=== PATIENT | female | born 1980 | race Caucasian/White ===

== ENCOUNTER 2016-04-04 13:19 | Emergency (ER) | payer OTHER ==
[~2016-04-04] VITALS: Ht 165.1 cm; Wt 70.8 kg
[~2016-04-04 13:19] MED LIST: ABILIFY5 M1 PO; BUSPIRONE10 MG PO; CLONIDINE0.1 MG PO; CYCLOBENZAPRINE10 M1 PO; DILAUDID2 MG PO; FOCALIN XR20 M1 PO; FOCALIN10 M1 PO; LAMICTAL200 M1 PO; NEURONTIN100 MG PO; PERCOCET 5-3251 EACH PO; PRISTIQ 50MG50 MG PO; PRISTIQ ER100 MG PO; SEROQUEL (MONO200 MG PO; ZOFRAN ODT4 MG PO; ZOFRAN ODT4 MG SL
--- NOTE | 2016-04-04 14:30 | ED NECK/BACK PAIN COMPLAINT ---
History of Present Illness General Chief Complaint: Upper Extremity Problem Stated Complaint: RT ARM NUMBNESS Source: patient Exam Limitations: no limitations Vital Signs & Intake/Output Vital Signs & Intake/Output Vital Signs Date Time Temp Pulse Resp B/P Pulse O2 O2 Flow FiO2 Ox Delivery Rate 04/04 1501 98.6 85 18 124/84 98 Room Air 04/04 1336 97.8 91 18 114/81 97 Room Air Allergies Coded Allergies: bupropion (From WELLBUTRIN) (RASH 11/07/15) shellfish derived (RASH 11/07/15) ketorolac ("HOT AND WEIRD" 11/07/15) Reconcile Medications Aripiprazole (Abilify) 5 MG TAB 1 TAB PO DAILY PSYCH (Reported) BUSPIRONE HCL (Buspirone HCl) 10 MG TAB 1 TAB PO BID PSYCH (Reported) CLONIDINE HCL (Clonidine) 0.1 MG TAB 1 TAB PO TAPER PRN WITHDRAWAL DAY 1,2: 1 TAB PO Q8H PRN WITHDRAWAL DAY 3,4: 1 TAB PO Q12H PRN WITHDRAWAL DAY 5: 1 TAB PO QD PRN WITHDRAWAL Cyclobenzaprine HCl 10 MG TABLET 1 TAB PO Q6 PRN MUSCLE SPASMS Cyclobenzaprine HCl 10 MG TABLET 1 TAB PO Q6 PRN MUSCLE SPASMS Desvenlafaxine Succinate (Pristiq ER) [address] 1 TAB PO DAILY PSYCH ( Reported) Desvenlafaxine Succinate (Pristiq ER) 50 MG TAB 1 TAB PO DAILY PSYCH ( Reported) Dexmethylphenidate HCl (Focalin XR) 20 MG CPBP.50.50 1 CAP PO QAM ADHD Dexmethylphenidate HCl (Focalin) 10 MG TABLET 1 TAB PO BID ADHD Gabapentin (Neurontin) 100 MG CAP 4 CAP PO TID PAIN (Reported) Hydrocodone/Acetaminophen (Vicodin 5-300 MG Tablet) 5 MG-300 MG TABLET 1 TAB PO BID PRN PAIN HYDROMORPHONE HCL (Dilaudid) 2 MG TABLET 1 TAB PO TID headache Ketorolac Tromethamine 10 MG TABLET 1 TAB PO TID PRN pain Lamotrigine (Lamictal) 200 MG TAB 1.5 TAB PO DAILY PSYCH (Reported) Ondansetron (Zofran Odt) 4 MG ODT 1-2 TAB PO Q6H PRN NAUSEA Ondansetron (Zofran Odt) 4 MG TAB.RAPDIS 1 TAB SL Q8 nausea Oxycodone HCl/Acetaminophen (Percocet 5-325 MG Tablet) 5 MG-325 MG TABLET 1-2 TAB PO Q6P PRN pain Oxycodone HCl/Acetaminophen (Percocet 5-325 MG Tablet) 1 EACH TABLET 1 TAB PO TID PRN BREAKTHROUGH PAIN Quetiapine Fumarate (Seroquel) 200 MG TAB 1 TAB PO QPM PSYCH (Reported) Triage Note: PT STATES HER RIGHT ARM IS NUMB "FEELS LIKE LIGHTENING BOLTS ARE GOING THROUGH IT". PT STATES THAT SHE HAD A CERIVAL SPINE FUSION AND SHE GETS THIS ON AND OFF. PT REPORTS THIS HAS BEEN GOING ON FOR OVER A WEEK STATES IT NORMALY GOES AWAY ON ITS OWN BUT IT ISN'T AND SHE VOMITED TODAY FROM THE PAIN. Triage Nurses Notes Reviewed? yes Onset: Gradual Duration: constant, getting worse Timing: recent history Quality/Severity: burning, radiation Method of Injury: unknown Loss of Consciousness: no loss of consciousness : No Patient currently breastfeeds: No HPI: Patient is a 36-year-old female with a one year history of a cervical spine fusion in which patient states that she's had persistent mild neck discomfort and pain and intermittent right upper extremity paresthesia and pain in which she followed up with her surgeon approximately 3 weeks ago stating this however "nothing was done". Patient presents today with worsening 3 week history of right arm pain and paresthesia most notable to the right hand and third and fourth digits. Patient has taken ibuprofen with no relief of symptoms. Denies any mechanism injury denies any extremity swelling or trauma. (JULISSA TOBIN) Past History Travel History Traveled to [place] past 21 day No Medical History Any Pertinent Medical History? see below for history Neurological: NONE EENT: NONE Cardiovascular: NONE Respiratory: NONE Gastrointestinal: NONE Hepatic: NONE Renal: NONE Musculoskeletal: NONE Psychiatric: depression, ADHD Surgical History Surgical History: cervical fusion Psychosocial History Who do you live with Friend What is your primary language Occitan Tobacco Use: Current Daily Use Daily Tobacco Use Amount/Type: => 5 Cigarettes daily ETOH Use: denies use Illicit Drug Use: denies illicit drug use Family History Hx Contributory? No (JULISSA TOBIN) Review of Systems Review of Systems Constitutional: Reports: no symptoms. Eyes: Reports: no symptoms. Ears, Nose, Throat, Mouth: Reports: no symptoms. Respiratory: Reports: no symptoms. Cardiovascular: Reports: no symptoms. Gastrointestinal/Abdominal: Reports: no symptoms. Musculoskeletal: Reports: see HPI, muscle pain. Skin: Reports: no symptoms. Neurological/Psychological: Reports: see HPI, paresthesia. All Other Systems: Reviewed and Negative (JULISSA TOBIN) Physical Exam Physical Exam General Appearance: well developed/nourished, no apparent distress, comfortable Neck: normal inspection, supple, paraspinous muscle tender, no midline tenderness Comments: Well-developed well-nourished person in no acute distress HEENT: Normal EENT exam, Neck: Supple, no lymphadenopathy, normal range of motion without pain or tenderness Back: Nontender, no CVA tenderness. Cardiovascular: Regular rate and rhythms no murmurs rubs or gallops, normal JVP Respiratory: Chest nontender. No respiratory distress.breath sounds clear to auscultation bilaterally Abdomen: Soft, nontender nondistended, no appreciable organomegaly. Normal bowel sounds. No ascites Extremity: No edema, no calf tenderness to palpation, normal and equal pulses. Right upper extremity- +4-5 resisted range of motion noted with shoulder flexion elbow flexion and extension wrist flexion and extension and corporate consultant strength due to pain. Decreased dermatome sensation noted to generalized below the elbow sensation compared bilaterally Radial pulse +2 capillary refill less than 2 seconds Neuro: Alert oriented x3, motor sensory normal, Skin: No appreciable rash on exposed skin, skin is warm and dry. Psych: Mood and affect is normal, memory and judgment is normal. (JULISSA TOBIN) Progress Differential Diagnosis: AAA, aortic dissection, C spine injury, carotid dissection, cauda equina syn, herniated disc, myofascial strain, pyelo/UTI, sciatica, spinal cord inj, thoracic outlet syn, T/L spine injury, ureterolithiasis Plan of Care: Current Medications Sig/Jossy Start time Last Medication Dose Stop Time Status Admin Dexamethasone 8 MG ONCE ONE 04/04 144 UNVr (Decadron) 04/04 144 Ketorolac 30 MG ONCE ONE 04/04 1445 UNVr Tromethamine 04/04 144 (Toradol) Due to history of present illness and exam findings I suspect patient had exacerbation of cervical radiculopathy Upon initial examination patient was in no apparent distress and eyes were closed and resting. No concerns of DVT Patient was given anti-inflammatory medications and strongly advised to moderate follow-up with surgeon and she will comply. (JULISSA TOBIN) Departure Departure Disposition: HOME OR SELF CARE Condition: Stable Clinical Impression Primary Impression: Cervical radiculopathy Referrals: JANNY JEAN BAPTISTE,WALLY Meredith (PCP/Family) Referred to [facility] as new patient No Additional Instructions: As discussed you have been given an intramuscular injection of Decadron for inflammation in the emergency room, please begin the prescription ketorolac for pain and inflammation, begin a prescription of Vicodin for breakthrough pain relief. If symptoms worsen or IF YOU develop a new onset of concerning symptom return to the emergency room. Tomorrow please follow-up with your surgeon for further evaluation treatment Departure Forms: Customer Survey General Discharge Information Prescriptions: Current Visit Scripts Ketorolac Tromethamine 1 TAB PO TID PRN pain #15 TAB Hydrocodone/Acetaminophen (Vicodin 5-300 MG Tablet) 1 TAB PO BID PRN PAIN #6 TAB (JULISSA TOBIN) PA/B[employer]ON SKIN LIFTER Co-Sign Statement Statement: ED Attending supervision documentation- [] I saw and evaluated the patient. I have also reviewed all the pertinent lab results and diagnostic results. I agree with the findings and the plan of care as documented in the PA's/BACON SKIN LIFTER's documentation. [X] I have reviewed the ED Record and agree with the PA's/BACON SKIN LIFTER's documentation. [] Additions or exceptions (if any) to the PAs/BACON SKIN LIFTER's note and plan are summarized below: [] (NUBIA JEAN BAPTISTE,OSMAN)
[2016-04-04] MEDS ORDERED: VICODIN 5-3001 EACH PO (14:42)
[2016-04-04] MEDS ORDERED: KETOROLAC TROME10 M1 PO (14:42)
[2016-04-04 15:01] VITALS: BP 124/84
== END 2016-04-04 15:01 ==
LOC: ERH 13:19
DX: M54.12 Radiculopathy, cervical region (principal)
CPT/HCPCS: 96372; J1885

== ENCOUNTER 2016-08-14 22:50 | Emergency (ER) | payer OTHER ==
[~2016-08-14] VITALS: Ht 165.1 cm; Wt 73.9 kg
[~2016-08-14 22:50] MED LIST changes: +KETOROLAC TROME10 M1 PO; +VICODIN 5-3001 EACH PO
--- NOTE | 2016-08-15 00:17 | ED ANKLE/FOOT INJURY COMPLAINT ---
History of Present Illness General Chief Complaint: Foot or Ankle Injury Stated Complaint: RIGHT GREAT TOE INFECTED Source: patient Exam Limitations: no limitations Vital Signs & Intake/Output Vital Signs & Intake/Output Vital Signs Date Time Temp Pulse Resp B/P B/P Pulse O2 O2 Flow FiO2 Mean Ox Delivery Rate 08/14 2254 96.0 118 16 123/87 99 Room Air ED Intake and Output 08/15 0000 08/14 1200 Intake Total 0 Output Total Balance 0 Intake, Oral 0 Patient 163 lb Weight Weight Reported by Patient Measurement Method Allergies Coded Allergies: bupropion (From WELLBUTRIN) (RASH 08/14/16) shellfish derived (RASH 08/14/16) ketorolac ("HOT AND WEIRD" 08/14/16) Reconcile Medications Aripiprazole (Abilify) 5 MG TAB 1 TAB PO DAILY PSYCH (Reported) BUSPIRONE HCL (Buspirone HCl) 10 MG TAB 1 TAB PO BID PSYCH (Reported) CLONIDINE HCL (Clonidine) 0.1 MG TAB 1 TAB PO TAPER PRN WITHDRAWAL DAY 1,2: 1 TAB PO Q8H PRN WITHDRAWAL DAY 3,4: 1 TAB PO Q12H PRN WITHDRAWAL DAY 5: 1 TAB PO QD PRN WITHDRAWAL Cyclobenzaprine HCl 10 MG TABLET 1 TAB PO Q6 PRN MUSCLE SPASMS Cyclobenzaprine HCl 10 MG TABLET 1 TAB PO Q6 PRN MUSCLE SPASMS Desvenlafaxine Succinate (Pristiq ER) [address] 1 TAB PO DAILY PSYCH ( Reported) Desvenlafaxine Succinate (Pristiq ER) 50 MG TAB 1 TAB PO DAILY PSYCH ( Reported) Dexmethylphenidate HCl (Focalin XR) 20 MG CPBP.50.50 1 CAP PO QAM ADHD Dexmethylphenidate HCl (Focalin) 10 MG TABLET 1 TAB PO BID ADHD Gabapentin (Neurontin) 100 MG CAP 4 CAP PO TID PAIN (Reported) Hydrocodone/Acetaminophen (Vicodin 5-300 MG Tablet) 5 MG-300 MG TABLET 1 TAB PO BID PRN PAIN HYDROMORPHONE HCL (Dilaudid) 2 MG TABLET 1 TAB PO TID headache Ketorolac Tromethamine 10 MG TABLET 1 TAB PO TID PRN pain Lamotrigine (Lamictal) 200 MG TAB 1.5 TAB PO DAILY PSYCH (Reported) Ondansetron (Zofran Odt) 4 MG ODT 1-2 TAB PO Q6H PRN NAUSEA Ondansetron (Zofran Odt) 4 MG TAB.RAPDIS 1 TAB SL Q8 nausea Oxycodone HCl/Acetaminophen (Percocet 5-325 MG Tablet) 5 MG-325 MG TABLET 1-2 TAB PO Q6P PRN pain Oxycodone HCl/Acetaminophen (Percocet 5-325 MG Tablet) 1 EACH TABLET 1 TAB PO TID PRN BREAKTHROUGH PAIN Quetiapine Fumarate (Seroquel) 200 MG TAB 1 TAB PO QPM PSYCH (Reported) Triage Note: PT TO ED C/O INFECTED RIGHT GREAT TOENAIL. PT STATES PAIN AND SWELLING STARTED 3 DAYS AGO, PROGRESSIVELY GETTING WORSE. DENIES TRAUMA Triage Nurses Notes Reviewed? yes Occurred: 3 days Duration: day(s):, constant, continues in ED, getting worse Timing: recent history Severity: moderate Pain/Injury Location: Right: 1st toe. Method of Injury: pedicure Modifying Factors: Worsens With: jarring, movement. Associated Symptoms: swelling, redness, GCS 15 since, stiffness LMP (ages 10-50): unknown : No Patient currently breastfeeds: No HPI: 3 days prior to admission patient perform pedicure. Right great toe has developed redness swelling worse with movement and pressure moderate to severe. She denies fever chills chest pain cough shortness breath nausea vomiting diarrhea abdominal pain headache dysuria rash bleeding. Past History Travel History Traveled to [place] past 21 day No Medical History Any Pertinent Medical History? see below for history Neurological: NONE EENT: NONE Cardiovascular: NONE Respiratory: NONE Gastrointestinal: NONE Hepatic: NONE Renal: NONE Musculoskeletal: NONE Psychiatric: depression, ADHD Surgical History Surgical History: cervical fusion Psychosocial History Who do you live with Friend What is your primary language Romanian Tobacco Use: Current Daily Use Daily Tobacco Use Amount/Type: => 5 Cigarettes daily ETOH Use: denies use Illicit Drug Use: denies illicit drug use Family History Hx Contributory? No Review of Systems Review of Systems Constitutional: Reports: no symptoms. EENTM: Reports: no symptoms. Respiratory: Reports: no symptoms. Cardiovascular: Reports: no symptoms. GI: Reports: no symptoms. Genitourinary: Reports: no symptoms. Musculoskeletal: Reports: see HPI, joint pain. Skin: Reports: see HPI, rash. Neurological/Psychological: Reports: no symptoms. Hematologic/Endocrine: Reports: no symptoms. Immunologic/Allergic: Reports: no symptoms. All Other Systems: Reviewed and Negative Physical Exam Physical Exam General Appearance: well developed/nourished, alert, awake, anxious, mild distress Head: atraumatic Eyes: Bilateral: PERRL, EOMI. Ears, Nose, Throat: normal pharynx, normal ENT inspection, hearing grossly normal Neck: normal inspection, supple Cardiovascular/Respiratory: regular rate/rhythm Back: normal inspection Leg/Knee/Thigh Left: normal range of motion, normal inspection Leg/Knee/Thigh Right: normal range of motion, normal inspection Ankle Left: normal inspection, normal range of motion Ankle Right: normal inspection, normal range of motion Foot Left: normal inspection, normal range of motion Foot Right: tenderness, limited range of motion, nail injury (lateral paronychia ), pain, soft tissue tenderness, swelling Reflexes: 2+: knee (R), knee (L). Neuro/Vascular: normal motor function, normal sensation, abnormal cap refill, cool skin Psychiatric: awake, alert, oriented x 3 Skin: intact, normal color, warm/dry Progress Differential Diagnosis: paronychia Plan of Care: I and D Departure Departure Time of Disposition: 43 Disposition: HOME OR SELF CARE Condition: Stable Clinical Impression Primary Impression: Paronychia of great toe of right foot Referrals: JANNY JEAN BAPTISTE,WALLY Meredith (PCP/Family) BRITTANY JEAN BAPTISTE,JACKI Bergman Departure Forms: Customer Survey General Discharge Information Prescriptions: Current Visit Scripts Cephalexin (Keflex) 1 CAP PO TID #21 CAP Oxycodone HCl 1-2 TAB PO Q6P PRN severe pain #15 TAB Procedures Incision and Drainage Site: right great toe lateral nail Blade Size: 15 I & D Procedure: Yes: betadine prep, sterile drapes applied, sterile dressing applied. No: wick placed. Progress: 04/11 nail excised, nailbed irritated Splinting Location: right great toe Manual Alignment Performed: No Pre-Made Type: metal Splint: toe Splint Applied By: splint applied by other Pre-Proc Neuro Vasc Exam: normal Post-Proc Neuro Vasc Exam: normal
[2016-08-15] MEDS ORDERED: OXYCODONE HCL5 M1 PO (00:45)
[2016-08-15] MEDS ORDERED: KEFLEX500 M1 PO (00:45)
[2016-08-15 01:01] VITALS: BP 128/82
== END 2016-08-15 01:09 ==
LOC: ERH 22:50
DX: L03.031 Cellulitis of right toe (principal)
CPT/HCPCS: J3490

== ENCOUNTER 2016-09-03 20:13 | Emergency (ER) | payer OTHER ==
[~2016-09-03] VITALS: Ht 165.1 cm; Wt 74.8 kg
[~2016-09-03 20:13] MED LIST changes: +KEFLEX500 M1 PO; +OXYCODONE HCL5 M1 PO
[2016-09-03] MEDS ORDERED: FOCALIN10 M1 PO (21:16)
[2016-09-03] MEDS ORDERED: FOCALIN5 M1 PO (21:16)
[2016-09-03] MEDS ORDERED: GABAPENTIN400 M2 PO (21:17)
[2016-09-03] MEDS ORDERED: LAMICTAL25 M1 PO (21:18)
[2016-09-03] MEDS ORDERED: ALPRAZOLAM1 M2 PO (21:19)
[2016-09-03] MEDS ORDERED: OXCARBAZEPINE150 M1 PO (21:19)
[2016-09-03] MEDS ORDERED: SUBOXONE 8 MG-1 EACH SL (21:21)
[2016-09-03] MEDS ORDERED: BUTALB-ACETAMI1 EAC1 PO (21:22)
[2016-09-03] MEDS ORDERED: MULTI-DAY VITA1 EACH PO (21:22)
[2016-09-03] MEDS ORDERED: IMITREX50 M1 PO (21:22)
--- NOTE | 2016-09-03 21:36 | ED HAND/WRIST INJURY COMPLAINT ---
History of Present Illness General Chief Complaint: Laceration Procedure Stated Complaint: PT HAS ACUT ON THE LEFT ARM Source: patient, old records Exam Limitations: no limitations Vital Signs & Intake/Output Vital Signs & Intake/Output Vital Signs Date Time Temp Pulse Resp B/P B/P Pulse O2 O2 Flow FiO2 Mean Ox Delivery Rate 09/035 97.3 90 18 113/64 97 Room Air 09/03 2022 98.7 102 16 128/85 100 Room Air ED Intake and Output 09/04 0000 09/03 1200 Intake Total Output Total Balance Patient 165 lb Weight Allergies Coded Allergies: bupropion (From WELLBUTRIN) (RASH 08/14/16) shellfish derived (RASH 08/14/16) ketorolac ("HOT AND WEIRD" 08/14/16) Reconcile Medications Alprazolam 1 MG TABLET 1 TAB PO QHS SLEEP (Reported) Aripiprazole (Abilify) 5 MG TABLET 1 TAB PO DAILY MENTAL HEALTH (Reported) Buprenorphine HCl/Naloxone HCl (Suboxone 8 MG-2 MG Sl Film) 8 MG-2 MG FILM 0.5 STR SL DAILY PAIN (Reported) Butalb/Acetaminophen/Caffeine (Fmarpr-Wvegvjmh-Izfc 50-300-40) 50 MG-300 MG-40 MG CAPSULE 1 CAP PO PRN MIGRAINES (Reported) Desvenlafaxine Succinate (Pristiq ER) 100 MG TAB.ER.24H 1 TAB PO DAILY MENTAL HEALTH (Reported) Dexmethylphenidate HCl (Focalin) 10 MG TABLET 1 TAB PO TID ADHD (Reported) Dexmethylphenidate HCl (Focalin) 5 MG TABLET 1 TAB PO DAILY ADHD (Reported) Gabapentin 400 MG CAPSULE 1 CAP PO TID NERVE PAIN (Reported) Lamotrigine (Lamictal) 200 MG TABLET 1 TAB PO DAILY MENTAL HEALTH (Reported) Lamotrigine (Lamictal) 25 MG TABLET 50 MG PO DAILY MENTAL HEALTH (Reported) Multivitamin (Multi-Day Vitamins) 1 EACH TABLET 1 TAB PO DAILY SUPPLEMENT ( Reported) Oxcarbazepine 150 MG TABLET 2 TAB PO QPM MENTAL HEAL (Reported) Oxycodone HCl/Acetaminophen (Percocet 5-325 MG Tablet) 5 MG-325 MG TABLET 1 TAB PO BID PRN PAIN Sumatriptan Succinate (Imitrex) 50 MG TABLET 1 TAB PO AD PRN MIGRAINES ( Reported) Triage Note: PT TO ER VIA AMBULANCE AFTER SHE STATES THAT SHE WAS TRYING TO CUT DUCT TAPE OFF HER [employer] WHEN KNIFE SLIPPED AND CUT THE TOP OF HER L HAND. REFUSES MEDS AT TRIAGE. PT NOTED WITH 3 INCH LAC ACROSS TOP OF HER HAND Triage Nurses Notes Reviewed? yes Occurred: just prior to arrival Duration: hour(s): (1), constant Timing: recent history Injury Environment: home Severity: severe Severity Numbers: 10 Pain/Injury Location: Left: Hand. Context: laceration Method of Injury: laceration No Modifying Factors: none Associated Symptoms: none : No Patient currently breastfeeds: No HPI: 36-year-old female presents to ER for evaluation status post sustaining laceration to the left dorsal hand when she was attempting to cut duct tape over her vacuum the knife slipped and sustained laceration to her hand. She denies any difficulty with range motion of her fingers hand or wrist no numbness or tingling. Last tetanus is unknown she is not taken anything for her mild to moderate aching pain. No modifying factors or associated symptoms otherwise (JULISSA BLUE) Past History Travel History Traveled to [place] past 21 day No Medical History Any Pertinent Medical History? see below for history Neurological: NONE EENT: NONE Cardiovascular: NONE Respiratory: NONE Gastrointestinal: NONE Hepatic: NONE Renal: NONE Musculoskeletal: NONE Psychiatric: depression, ADHD Surgical History Surgical History: cervical fusion Psychosocial History Who do you live with Friend What is your primary language Botswanan Tobacco Use: Never used ETOH Use: denies use Illicit Drug Use: denies illicit drug use Family History Hx Contributory? No (JULISSA BLUE) Review of Systems Review of Systems Constitutional: Reports: see HPI. All Other Systems: Reviewed and Negative Comments Review of systems: See HPI, All other systems negative. Constitutional, no chills no fever, no malaise HEENT: no sore throat no congestion, no ear pain Cardiovascular: No chest pain , no palpitation , no orthopnea Skin: no rashes, no change in skin Respiratory: No dyspnea no cough no sputum GI: No nausea no vomiting, no diarrhea Muscle skeletal: No joint pain, no joint swelling, no back pain, no neck pain, Neurologic: No numbness no headache Psych: No stress no depression,. Heme/endocrine: No bruising no bleeding Immunology: No lymphadenopathy (JULISSA BLUE) Physical Exam Physical Exam General Appearance: well developed/nourished, no apparent distress, alert, awake Hand Left: lacerations Hand Right: normal inspection, normal range of motion Comments: Well-developed well-nourished patient in no apparent distress. HEENT: Atraumatic, extraocular motion intact Neck: Supple, FROM Back: FROM Respiratory: No respiratory distress. Patient speaking in full complete sentences. Breath sounds clear to auscultation bilaterally: NO W/R/R Shoulder: Atraumatic/Stable. FROM . Elbow: Atraumatic/stable. FROM. No laxity Upper arm/Forearm: Atraumatic. Nontender. 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 Brisk cap refill Extremities: Full range of motion Neuro: awake, alert, and oriented to person, place and time. There were no obvious focal neurologic abnormalities. Skin: Warm & dry;No appreciable rash on exposed skin Psych: Mood affect normal, normal memory normal judgment. Diagram Hands Back 1) Aspiration as described above (JULISSA BLUE) Progress Differential Diagnosis: contusion, compartment syndrome, dislocation, fracture, sprain, tendon injury Plan of Care: After verbal consent was obtained area was thoroughly irrigated with normal saline Betadine peroxide. Anesthetized with lidocaine 1% 10 mL sutures 15 placed by me. Return precautions were discussed with the patient at length possibility of foreign body tendon injury not seen on examination still exists sterile dressing was applied she will return in 7-10 days for suture removal return anytime sooner with any concerns answered all of her questions cleared for discharge (JULISSA BLUE) Departure Departure Time of Disposition: 2252 Disposition: HOME OR SELF CARE Condition: Stable Clinical Impression Primary Impression: Hand laceration Referrals: JANNY JEAN BAPTISTE,WALLY Meredith (PCP/Family) Additional Instructions: Keep area clean and covered as discussed, bacitracin daily. Return to ER in 7- 10 days for suture removal. Please understand that foreign bodies such as glass or wood may not be visible to the naked eye or on plain x-rays. If the wound becomes red, swollen, increasingly more painful or if there is any drainage from the wound, please have it reevaluated by a physician for the possibility of a retained foreign body. Departure Forms: Customer Survey General Discharge Information Prescriptions: Current Visit Scripts Oxycodone HCl/Acetaminophen (Percocet 5-325 MG Tablet) 1 TAB PO BID PRN PAIN #10 TAB (JULISSA BLUE) PA/COMPUTER NETWORKER Co-Sign Statement Statement: ED Attending supervision documentation- [] I saw and evaluated the patient. I have also reviewed all the pertinent lab results and diagnostic results. I agree with the findings and the plan of care as documented in the PA's/COMPUTER NETWORKER's documentation. [X] I have reviewed the ED Record and agree with the PA's/COMPUTER NETWORKER's documentation. [] Additions or exceptions (if any) to the PAs/COMPUTER NETWORKER's note and plan are summarized below: [] (NATIVIDAD JEAN BAPTISTE,JOAO Ruano) Procedures Laceration/Wound Repair Laceration/Wound Repair: Wound Location: upper extremity Wound's Depth, Shape: linear, superficial Wound Length (cm): 8 Wound Explored: clean, no foreign body removed, irrigated extensively Irrigated w/ Saline (ccs): 200 Betadine Prep? Yes Anesthesia: 1% lidocaine Volume Anesthetic (ccs): 10 Wound Repaired With: sutures Suture Size/Type: 3:0 Number of Sutures: 15 Layer Closure? No Sterile Dressing Applied: Yes Date of Last Tetanus: 09/03/16 Tetanus Status: not up to date (JULISSA BLUE)
[2016-09-03] MEDS ORDERED: PERCOCET 5-3251 EACH PO (22:53)
[2016-09-03 22:55] VITALS: BP 113/64
== END 2016-09-03 23:13 ==
LOC: ERH 20:13
DX: S61.412A Laceration without foreign body of left hand, initial encounter (principal); W26.0XXA Contact with knife, initial encounter; Y92.9 Unspecified place or not applicable; Y93.9 Activity, unspecified
CPT/HCPCS: 90471; 90714; 96372